=== PATIENT | female | born 1960 | race Caucasian/White ===

== ENCOUNTER 2017-04-06 22:06 | Emergency (ER) | payer BC ==
[~2017-04-06] VITALS: Ht 170.2 cm; Wt 61.3 kg
[~2017-04-06 22:06] MED LIST: CENTRUM SILVER1 EAC3 PO; CIPRO500 MG PO; MELATONIN5 M1 PO; PROTONIX40 MG PO
[2017-04-06 23:02] LABS: HEMATOCRIT 37.6 % (36.0-46.0); MCH 30.7 PG (29.0-34.0); MCV 93.1 FL (83-99); MEAN PLAT.VOLUME 10.5 uM^3 (9.5-12.4); PLATELET COUNT 219 K/uL (156-360); RBC DIS.WIDTH-CV 12.5 % (11.8-14.6); RBC DIS.WIDTH-SD 42.7 % (39-53); RED BLOOD COUNT 4.04 M/uL (3.80-5.20); WHITE BLOOD COUNT 8.5 K/uL (4.1-10.2)
[2017-04-06 23:15] LABS: CHLORIDE 106 mEq/L (99-109); SODIUM 141 mEq/L (136-147)
[2017-04-06 23:17] LABS: GLUCOSE 82 mg/dL (70-99)
[2017-04-06 23:18] LABS: ANION GAP 8 MEQ/L (2-14)
[2017-04-06 23:21] LABS: GFR ESTIMATE (CALCULATED) > 59 mL/min/
[2017-04-06 23:22] LABS: UREA NITROGEN (BUN) 17 mg/dL (9-23)
[2017-04-06 23:23] LABS: TROP-I INTERPRETATION NEGATIVE; TROPONIN-I < 0.01 ng/mL (0.0-0.30)
[2017-04-07 01:50] LABS: TROP-I INTERPRETATION NEGATIVE; TROPONIN-I < 0.01 ng/mL (0.0-0.30)
[2017-04-07 02:11] VITALS: BP 127/79
== END 2017-04-07 02:12 | disposition home or self-care (01) ==
LOC: EME 22:06
PROVIDERS: Emergency Medicine
DX: R07.9 Chest pain, unspecified (principal); R55 Syncope and collapse; R68.84 Jaw pain
CPT/HCPCS: 71020; 80048; 84484; 85027; 93005; 99281; 99285; J7030